=== PATIENT | male | born 1985 | race African-American/Black ===

== ENCOUNTER 2016-07-09 23:24 | Inpatient (IN) | payer OTHER ==
[2016-07-09 23:24] VITALS: O2SAT 98
[2016-07-09] MEDS ORDERED: ceFAZolin 2 GM PREMIX 50 ML ONE (23:29)
[2016-07-09] MEDS ORDERED: LIDOCAINE 1%/EPINEPHrine 1:100,000 SOLN 20 ML VIAL ONE (23:33)
[2016-07-09] MEDS ORDERED: LIDOCAINE 1%/EPINEPHrine 1:100,000 SOLN 30 ML VIAL ONE (23:35)
[2016-07-09] MEDS ORDERED: ceFAZolin 2 GM PREMIX 50 ML IV STA (23:39)
[2016-07-09] MEDS ORDERED: DIPHTH/TETANUS/ACEL PERTUSSIS (BOOSTER) 0.5 ML VIAL/PFS IM ONE (23:39)
[2016-07-10] MEDS ORDERED: SODIUM CHLORIDE 0.9% FLUSH 5 ML FLUSH IVF PRN
[2016-07-10] MEDS ORDERED: NALOXONE HCL 0.4 MG/ML AMP IV PRN
[2016-07-10] MEDS ORDERED: ONDANSETRON HCL 4 MG/2 ML VIAL IV PRN
[2016-07-10] MEDS ORDERED: MORPHINE SULFATE 4 MG/ML INJ IV PRN
[2016-07-10] MEDS ORDERED: Post-op Orders (for Pharmacy) MISC XX ONE
[2016-07-10 00:02] LABS: I-STAT POTASSIUM 4.7 MMOL/L (3.5-4.9)
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
[2016-07-10 00:05] LABS: AUTOMATED NEUTROPHIL # 4.4 TH/MM3 (1.8-7.7); BASOPHIL % 0.3 % (0.0-2.0); HEMATOCRIT 37.4 % (39.0-51.0); HEMO FLAGS DIFF FINAL; LYMPH % 21.7 % (9.0-44.0); LYMPHOCYTE # 1.4 TH/MM3 (1.0-4.8); MEAN CORPUSCULAR HEMOGLOBIN 27.7 PG (27.0-34.0); MONO % 8.8 % (0.0-8.0); NEUT % 69.2 % (16.0-70.0); PLATELET COUNT 156 TH/MM3 (150-450); RED BLOOD COUNT 4.46 MIL/MM3 (4.50-5.90); RED CELL DISTRIBUTION WIDTH 15.2 % (11.6-17.2); WHITE BLOOD COUNT 6.4 TH/MM3 (4.0-11.0)
[2016-07-10 00:14] LABS: APTT (PATIENT) 33.5 SEC (24.3-30.1); INTERNATIONAL NORMALIZED RATIO 1.1 RATIO; PROTHROMBIN TIME - PATIENT 12.4 SEC (9.8-11.6)
[2016-07-10] MEDS ORDERED: LIDOCAINE 1%/EPINEPHrine 1:100,000 SOLN 20 ML VIAL ONE (00:26)
[2016-07-10] MEDS ORDERED: LACTATED RINGER'S 1000 ML INJ 1,000 ML IV SCH (01:20)
[2016-07-10] MEDS ORDERED: DO NOT ADM ANY ANTICOAGULANT DRUGS XX PRN (01:40)
[2016-07-10] MEDS ORDERED: MIDAZOLAM HCL 2 MG/2 ML VIAL ONE (01:49)
[2016-07-10] MEDS ORDERED: fentaNYL CITRATE 250 MCG/5 ML AMP ONE (01:50)
[2016-07-10] MEDS ORDERED: HYDROmorphone HCL PF 1 MG/ML VIAL IV PRN (02:00)
[2016-07-10] MEDS ORDERED: oxyCODONE/ACETAMINOPHEN 7.5 MG/325 MG TAB PO PRN (02:00)
[2016-07-10 03:06] VITALS: BP 116/74; PULSE 86; RESP 21; TEMP 97.8; O2SAT 100
[2016-07-10] MEDS ORDERED: CLINDAMYCIN INJ 600 MG in SODIUM CHLORIDE 0.9% INJ 50 ML IV SCH (04:00)
[2016-07-10] MEDS: ceFAZolin 2 GM PREMIX 50 ML IV SCH ×2 (04:29→12:11)
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
[2016-07-10 08:00] VITALS: BP 131/82; PULSE 102; RESP 18; TEMP 97.5; O2SAT 99
[2016-07-10] MEDS ORDERED: SODIUM CHLORIDE 0.9% FLUSH 5 ML FLUSH IVF SCH (09:00)
[2016-07-10] MEDS ORDERED: PANTOPRAZOLE SODIUM 40 MG VIAL IV SCH (09:00)
[2016-07-10 09:45] VITALS: O2SAT 96
[2016-07-10 10:07] LABS: BICARBONATE 27.5 MEQ/L (21.0-32.0); POTASSIUM 3.8 MEQ/L (3.5-5.1)
[2016-07-10 10:08] LABS: AUTOMATED NEUTROPHIL # 3.1 TH/MM3 (1.8-7.7); BASOPHIL % 0.2 % (0.0-2.0); EOSINOPHIL % 0.1 % (0.0-4.0); HEMATOCRIT 32.1 % (39.0-51.0); HEMO FLAGS DIFF FINAL; LYMPH % 25.9 % (9.0-44.0); LYMPHOCYTE # 1.2 TH/MM3 (1.0-4.8); MEAN CELL VOLUME 83.3 FL (80.0-100.0); MEAN CORPUSCULAR HGB CONC 33.6 % (32.0-36.0); MONO % 6.5 % (0.0-8.0); NEUT % 67.3 % (16.0-70.0); PLATELET COUNT 133 TH/MM3 (150-450); RED BLOOD COUNT 3.85 MIL/MM3 (4.50-5.90); RED CELL DISTRIBUTION WIDTH 15.2 % (11.6-17.2); WHITE BLOOD COUNT 4.5 TH/MM3 (4.0-11.0)
[2016-07-10 12:00] VITALS: BP 135/76; PULSE 103; RESP 16; TEMP 96.6; O2SAT 100
[2016-07-10] MEDS ORDERED: PROPOFOL 200 MG/20 ML AMP IV ONE (12:00)
[2016-07-10] MEDS ORDERED: ONDANSETRON HCL 4 MG/2 ML VIAL IV PUSH ONE (12:00)
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
[2016-07-10] MEDS ORDERED: CEPH-460 PO (15:39)
[2016-07-10] MEDS ORDERED: PERC5TAB12 PO (15:39)
[2016-07-11] MEDS ORDERED: SODIUM CHLOR 0.9% 1000 ML INJ 1,000 ML IV SCH (02:00)
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
--- NOTE | 2016-07-21 20:19 | PD ---
Physical Exam Date Seen by Provider: Jul 10, 2016 Time Seen by Provider: 20:16 Narrative The patient has multiple facial lacerations. He has bleeding coming from the large left cheek and mouth laceration. Data Data Orders Type And Screen (07/09/16 23:29) Cefazolin 2 Gm Premix (Ancef 2 Gm Premix (07/09/16 23:29) I-Stat Profile (07/09/16 23:25) I-Stat Creatinine (07/09/16 23:25) Complete Blood Count With Diff (07/09/16 23:25) Prothrombin Time / Inr (Pt) (07/09/16 23:25) Act Partial Throm Time (Ptt) (07/09/16 23:25) Chest, Single Ap (07/09/16 23:25) Ct Brain W/O Iv Contrast(Rout) (07/09/16 23:25) Ct Facial Bones W/O Iv Cont (07/09/16 23:25) Iv Access Insert/Monitor (07/09/16 23:25) Ecg Monitoring (07/09/16 23:25) Oximetry (07/09/16 23:25) Oxygen Administration (07/09/16 23:25) Lidocai-Epi 1%-1:100,000 Inj (Xylocaine- (07/09/16 23:33) Lidocai-Epi 1%-1:100,000 Inj (Xylocaine- (07/09/16 23:35) Cefazolin 2 Gm Premix (Ancef 2 Gm Premix (07/09/16 23:39) Cbxj-Gnq-Shljsw (Booster) Inj (Boostrix (07/09/16 23:39) Admit To Inpatient (07/09/16 ) Code Status (07/09/16 23:53) Vital Signs (Adult) Q4H (07/09/16 23:53) Activity Bed Rest (07/09/16 23:53) Intake + Output MITA.QSHIFT (07/09/16 23:53) Truck Dispatcher / Telemetry (07/09/16 23:53) Sodium Chloride 0.9% Flush (Ns Flush) (07/10/16 00:00) Sodium Chloride 0.9% Flush (Ns Flush) (07/10/16 09:00) Ondansetron Inj (Zofran Inj) (07/10/16 00:00) Pantoprazole Inj (Protonix Inj) (07/10/16 09:00) Resp Incentive Spirometry (07/09/16 ) Clindamycin Inj (Cleocin Inj) (07/10/16 04:00) Post-Op Orders (For Pharmacy) (Post-Op O (07/10/16 00:00) Morphine Inj (Morphine Inj) (07/10/16 00:00) Naloxone Inj (Narcan Inj) (07/10/16 00:00) Vte Prophylaxis Not Indicated (07/09/16 23:53) Inpatient Certification (07/09/16 ) Consult Plastic Surgery (07/09/16 ) Lidocai-Epi 1%-1:100,000 Inj (Xylocaine- (07/10/16 00:26) Sodium Chlor 0.9% 1000 Ml Inj (Ns 1000 M (07/11/16 02:00) MDM Medical Record Reviewed: Yes Supervised Visit with AAYUSH: Yes Differential Diagnosis MDM: High Differential diagnoses: Fracture, sprain, strain, dislocation, contusion, neurovascular injury Narrative Course . Procedures Procedure Narrative LACERATION LOCATION: Left cheek and mouth LENGTH: 7-8 cm NUMBER OF STITCHES/EZIO: 2 REPAIR: The area of the laceration was prepped with Betadine and sterilely draped. The laceration was infiltrated with 1% lidocaine with epinephrine. The wound was copiously irrigated and explored without evidence of foreign body , tendon injury. Positive arterial bleeding. The bleeder was ligated using 5- 0 Vicryl. The wound was left open.. A sterile dressing was applied. Patient tolerated the procedure well. The patient will need to go to the operating room for morbid definitive repair. This was only a temporizing procedure to obtain hemostasis. Diagnosis Primary Impression: Laceration of face, multiple sites Patient Instructions: Cephalexin (By mouth), Oxycodone/Acetaminophen (By mouth) , Steristrips (ED), Facial Laceration (ED) Vito Banks Jul 21, 2016 20:19
== END 2016-07-10 18:23 | disposition home or self-care (01) | DRG 581 ==
LOC: NEPI 23:24 → EDBD 07-10 01:20 → N07B 07-10 01:20 → MERGE 07-10 01:20
PROVIDERS: ADMIT Surgery; ATTEND Surgery
PROC: 30233N1 Transfusion of Nonautologous Red Blood Cells into Peripheral Vein, Percutaneous Approach (ICD-10-PCS; 2016-07-09)
PROC: 0CQ0XZZ Repair Upper Lip, External Approach (ICD-10-PCS; 2016-07-10)
PROC: 0HQ1XZZ Repair Face Skin, External Approach (ICD-10-PCS; 2016-07-10)
PROC: 0KQ10ZZ Repair Facial Muscle, Open Approach (ICD-10-PCS; principal; 2016-07-10 00:19)
DX: S01.81XA Laceration without foreign body of other part of head, initial encounter (principal); S02.2XXA Fracture of nasal bones, initial encounter for closed fracture; S01.419A Laceration without foreign body of unspecified cheek and temporomandibular area, initial encounter; S01.511A Laceration without foreign body of lip, initial encounter; Z98.2 Presence of cerebrospinal fluid drainage device; X99.1XXA Assault by knife, initial encounter; Y93.89 Activity, other specified; Y92.488 Other paved roadways as the place of occurrence of the external cause; R40.2413 Glasgow coma scale score 13-15, at hospital admission; Z23 Encounter for immunization; Z72.0 Tobacco use
CPT/HCPCS: 36430; 70450; 70486; 71010; 80048; 82435; 82565; 82947; 84132; 84295; 84520; 85025; 85610; 85730; 86850; 86900; 86901; 86920; 90471; 94150; 96365; 99291; C9113; G0390; J0690; J1170; J2250; J2405; J3010; J7120; P9016

== ENCOUNTER 2018-02-20 19:24 | Observation (INO) ==
--- NOTE | 2018-02-20 20:20 | XR ---
EXAM DATE: 02/20/2018 8:17 PM EDT AGE/SEX: 32 years / Male INDICATIONS: . Shortness of breath. CLINICAL DATA: This is the patient's initial encounter. Patient reports that signs and symptoms have been present for 1 day and indicates a pain score of Nonresponsive. MEDICAL/SURGICAL HISTORY: Seizures. . evp of products & co founder shunt [place] [facility] [place] . FINDINGS: PA and lateral views of the chest demonstrate the lungs to be symmetrically aerated without evidence of mass, infiltrate or effusion. The cardiomediastinal contours are unremarkable. Osseous structures are intact. A ventricular peritoneal shunt catheter is again noted projected over the right hemithora x. CONCLUSION: No acute cardiopulmonary disease. Electronically signed by: Jorge Dela Cruz MD 02/20/2018 8:18 PM EDT
[2018-02-20] MEDS ORDERED: Naloxone Inj 0.4 MG/ML Vial IV.PUSH ONE (20:25)
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
[2018-02-20 20:44] LABS: Baso % (Auto) 0.2 % (0.0-2.0); Eos # (Auto) 0.1 th/mm3 (0.0-0.4); Eos % (Auto) 0.8 % (0.0-4.0); Hematocrit 40.1 % (39.0-51.0); Hemoglobin 12.8 gm/dL (13.0-17.0); Lymph # (Auto) 1.4 th/mm3 (1.0-4.8); Lymph % (Auto) 13.4 % (9.0-44.0); Mean Corpuscular Hemoglobin 28.2 pg (27.0-34.0); Mean Corpuscular Volume 88.3 fL (80.0-100.0); Mean Platelet Volume 10.5 fL (7.0-11.0); Mono # (Auto) 0.4 th/mm3 (0.0-0.9); Mono % (Auto) 3.9 % (0.0-8.0); Neut # (Auto) 8.3 th/mm3 (1.8-7.7); Neut % (Auto) 81.7 % (16.0-70.0); Platelet Count 183 th/mm3 (150-450); Red Blood Count 4.54 mil/mm3 (4.50-5.90); Red Cell Distribution Width 16.4 % (11.6-17.2); White Blood Count 10.1 th/mm3 (4.0-11.0)
[2018-02-20 20:51] LABS: INR 1.1 Ratio; Prothrombin Time 11.4 sec (9.8-11.6)
[2018-02-20 21:06] LABS: Anion Gap 11 meq/L (5-15)
[2018-02-20 21:09] LABS: Albumin 3.7 g/dL (3.4-5.0); Aspartate Aminotransferase 65 U/L (15-37); Blood Urea Nitrogen 10 mg/dL (7-18); Carbon Dioxide 29.5 meq/L (21.0-32.0); Chloride 102 meq/L (98-107); Glomerular Filtration Rate 72 mL/min (>89); Glucose,Random 182 mg/dL (74-106); Sodium 142 meq/L (136-145)
--- NOTE | 2018-02-20 21:12 | XR ---
EXAM DATE: 02/20/2018 9:07 PM EDT AGE/SEX: 32 years / Male INDICATIONS: Left forearm pain. CLINICAL DATA: This is the patient's initial encounter. Patient reports that signs and symptoms have been present for 1 day and indicates a pain score of Nonresponsive. MEDICAL/SURGICAL HISTORY: Non-responsive. Non-responsive. COMPARISON: [facility], ELBOW LEFT COMPLETE (4 VWS), 10/11/2015. . FINDINGS: Bony structures are intact and in normal alignment. Osseous density is normal. There is diffuse soft tissue prominence over the forearm with no radiopaque foreign body. CONCLUSION: Soft tissue prominence with no radiopaque foreign body. Electronically signed by: Jorge Dela Cruz MD 02/20/2018 9:11 PM EDT
[2018-02-20 21:16] LABS: Alanine Aminotransferase 68 U/L (12-78); Alkaline Phosphatase 79 U/L (45-117); Potassium 2.8 meq/L (3.5-5.1); Total Protein 8.1 g/dL (6.4-8.2)
[2018-02-20] MEDS ORDERED: Sod Chloride 0.9% Inj 1,000 ML IV.SIG SCH (21:30)
--- NOTE | 2018-02-20 21:37 | CT ---
EXAM DATE: 02/20/2018 9:26 PM EDT AGE/SEX: 32 years / Male INDICATIONS: Altered mental status. CLINICAL DATA: This is the patient's initial encounter. Patient reports that signs and symptoms have been present for 1 day and indicates a pain score of Nonresponsive. MEDICAL/SURGICAL HISTORY: Hypertension. Craniotomy. Shunt. RADIATION DOSE: 56.35 CTDI (mGy) COMPARISON: [facility] [place], CT BRAIN W/O CONTRAST, 11/15/2015. . TECHNIQUE: CT of the head without contrast. Using automated exposure control and adjustment of the mA and/or kV according to patient size, radiation dose was kept as low as reasonably achievable to ob tain optimal diagnostic quality images. DICOM format image data is available electronically for revi ew and comparison. FINDINGS: Cerebrum: The ventricles are normal for age. There is a stable small area of encephalomalacia involv ing the lateral left frontal lobe small area of calcification. The patient status post adjacent crani otomy. No evidence of midline shift, mass lesion, hemorrhage or acute infarction. No extraaxial flui d collections are seen. A ventricular shunt catheter is again noted in place via a right frontal appr oach with the tip near midline in stable in appearance. Posterior Fossa: The cerebellum and brainstem are intact. The 4th ventricle is midline. The cerebe llopontine angle is unremarkable. Extracranial: The visualized portion of the orbits is intact. Skull: Remote postsurgical changes are consistent status post left craniotomy. No evidence of skull fracture. CONCLUSION: 1. No acute hemorrhage, mass or acute infarction. 2. Status post remote left craniotomy stable area of encephalomalacia in the left frontal lobe. 3. The ventriculoperitoneal shunt catheter remains in place with no evidence of hydrocephalus. . Electronically signed by: Jorge Dela Cruz MD 02/20/2018 9:36 PM EDT
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
[2018-02-20] MEDS: Potassium Chlor 10 mEq Premix 10 MEQ/100 ML PIGGYBACK IV.SIG SCH ×2 (22:50→23:57)
[2018-02-20] MEDS ORDERED: Bisacodyl 10 MG Supp RECTAL PRN (23:12)
[2018-02-20] MEDS ORDERED: Acetaminophen 325 MG Tablet PO PRN (23:12)
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
[2018-02-21 00:04] LABS: Amorphous Sediment,Urine Rare /hpf; Bacteria,Urine Rare /hpf; Bilirubin,Urine Negative (Negative); Clarity,Urine Hazy (Clear); Color,Urine Yellow (Yellw/Straw); Glucose,Urine (UA) 50 mg/dL (Negative); Leukocyte Esterase,Urine Negative (Negative); Mucus,Urine Few /lpf (Occasional); Nitrite,Urine Negative (Negative); Specific Gravity,Urine 1.016 (1.002-1.035); Squamous Epithelial Cell,Urine <1 /hpf (0-5); Urobilinogen,Urine 4 or Greater mg/dL (Less than 2)
[2018-02-21 00:09] LABS: Amphetamine Screen,Urine Neg (Neg); Barbiturate Screen,Urine Neg (Neg); Cannabinoid Screen,Urine Neg (Neg); Cocaine Screen,Urine Pos (Neg)
[2018-02-21 00:17] LABS: Opiate Screen,Urine Neg (Neg)
[2018-02-21] MEDS: Potassium Chlor 10 mEq Premix 10 MEQ/100 ML PIGGYBACK IV.SIG SCH ×4 (01:00→05:13)
[2018-02-21] MEDS ORDERED: Senna/Docusate Sodium 8.6/50 MG Tablet PO SCH (09:00)
[2018-02-21 11:38] LABS: Anion Gap 8 meq/L (5-15); Blood Urea Nitrogen 7 mg/dL (7-18); Calcium 7.7 mg/dL (8.5-10.1); Carbon Dioxide 28.4 meq/L (21.0-32.0); Chloride 114 meq/L (98-107); Glomerular Filtration Rate Greater Than 89 mL/min (>89); Glucose,Random 92 mg/dL (74-106); Potassium 3.4 meq/L (3.5-5.1); Sodium 150 meq/L (136-145)
[2018-02-21 12:21] VITALS: RESP 18; O2SAT 99
[2018-02-21] MEDS ORDERED: Potassium Chloride Inj 10 MEQ in Sodium Chloride 0.45 % Inj 1,000 ML IV.CONT SCH (14:00)
--- NOTE | 2018-02-21 14:43 | P.PNIM ---
Subjective Interval history: Nursing denies any deterioration since last night. Patient himself wanting to go home is asking to go home so he can see his daughter. Has given me permission to talk to his brother Ramesh about his health. Physical Exam Vital signs: Vital Signs 02/20/18 19:36 02/20/18 20:30 02/21/18 00:00 Temperature 99.1 F 97.9 F Pulse Rate 97 H 85 Respiratory Rate 18 16 Blood Pressure 134/70 151/82 H Pulse Oximetry 98 98 100 02/21/18 04:00 02/21/18 07:21 02/21/18 08:25 Temperature 98.1 F Pulse Rate 83 75 Respiratory Rate 16 16 Blood Pressure 149/78 H 134/84 Pulse Oximetry 100 99 100 02/21/18 08:44 02/21/18 12:00 Temperature 98.8 F 99.0 F Pulse Rate 93 H Respiratory Rate 18 Blood Pressure 111/63 Pulse Oximetry 99 Intake & Output 02/20/18 02/21/18 02/21/18 18:59 06:59 18:59 Intake Total 1600 / 1600 Balance 1600 / 1600 Weight 100.055 kg Intake: IV 1600 / 1600 KCl 10 mEq Premix Inj 10 meq In 600 / 600 100 ml @ 100 mls/hr IV.SIG Q1H RENATO Rx#:[id number] NS Inj 1,000 ML @ Wide Open IV. 1000 / 1000 SIG BOLUS RENATO Rx#:[id number] Other: Other Intake Source Saline Solution Narrative: Has slightly garbled speech likely secondary to his chronic traumatic brain injury. But no facial droop Alert and oriented 3, actually has intact insight Clear lungs bilaterally, unlabored breathing Ambulating without any difficulty Results - Labs CBC & Chem 7: 02/20/18 20:30 02/21/18 15:46 Laboratory Results - last 24 hr 02/20/18 02/20/18 02/20/18 20:30 20:30 20:30 WBC 10.1 RBC 4.54 Hgb 12.8 L Hct 40.1 MCV 88.3 MCH 28.2 MCHC 32.0 RDW 16.4 Plt Count 183 MPV 10.5 Neut % (Auto) 81.7 H Lymph % (Auto) 13.4 [place] % (Auto) 3.9 Eos % (Auto) 0.8 Baso % (Auto) 0.2 Neut # (Auto) 8.3 H Lymph # (Auto) 1.4 [place] # (Auto) 0.4 Eos # (Auto) 0.1 Baso # (Auto) 0.0 WBC Differential . Differential Comment Auto diff final PT 11.4 INR 1.1 Sodium 142 Potassium 2.8 L* Chloride 102 Carbon Dioxide 29.5 Anion Gap 11 BUN 10 Creatinine 1.38 H Estimated GFR 72 L Random Glucose 182 H Lactic Acid Calcium 9.0 Magnesium Total Bilirubin 0.3 AST 65 H ALT 68 Alkaline Phosphatase 79 Ammonia Troponin I Less than 0.02 L Total Protein 8.1 Albumin 3.7 Urine Color Urine Clarity Urine pH Ur Specific [place] Urine Protein Urine Glucose (UA) Urine Ketones Urine Occult Blood Urine Nitrate Urine Bilirubin Urine Urobilinogen Ur Leukocyte Esterase Urine RBC Urine WBC Ur Squamous Epith Cells Amorphous Sediment Urine Bacteria Urine Mucus Micro UA Comment Ur Microscopic Review Urine Culture Comments Salicylates Urine Opiates Screen Ur Barbiturates Screen Ur Amphetamines Screen U Benzodiazepines Scrn Urine Cocaine Screen U Cannabinoids Screen Serum Alcohol Less than 3 02/20/18 02/20/18 02/20/18 20:30 20:30 20:35 WBC RBC Hgb Hct MCV MCH MCHC RDW Plt Count MPV Neut % (Auto) Lymph % (Auto) [place] % (Auto) Eos % (Auto) Baso % (Auto) Neut # (Auto) Lymph # (Auto) [place] # (Auto) Eos # (Auto) Baso # (Auto) WBC Differential Differential Comment PT INR Sodium Potassium Chloride Carbon Dioxide Anion Gap BUN Creatinine Estimated GFR Random Glucose Lactic Acid 2.2 H Calcium Magnesium Total Bilirubin AST ALT Alkaline Phosphatase Ammonia 19 Troponin I Total Protein Albumin Urine Color Urine Clarity Urine pH Ur Specific [place] Urine Protein Urine Glucose (UA) Urine Ketones Urine Occult Blood Urine Nitrate Urine Bilirubin Urine Urobilinogen Ur Leukocyte Esterase Urine RBC Urine WBC Ur Squamous Epith Cells Amorphous Sediment Urine Bacteria Urine Mucus Micro UA Comment Ur Microscopic Review Urine Culture Comments Salicylates 2.9 Urine Opiates Screen Ur Barbiturates Screen Ur Amphetamines Screen U Benzodiazepines Scrn Urine Cocaine Screen U Cannabinoids Screen Serum Alcohol 02/20/18 02/20/18 02/21/18 23:44 23:44 09:53 WBC RBC Hgb Hct MCV MCH MCHC RDW Plt Count MPV Neut % (Auto) Lymph % (Auto) [place] % (Auto) Eos % (Auto) Baso % (Auto) Neut # (Auto) Lymph # (Auto) [place] # (Auto) Eos # (Auto) Baso # (Auto) WBC Differential Differential Comment PT INR Sodium 150 H Potassium 3.4 L Chloride 114 H D Carbon Dioxide 28.4 Anion Gap 8 BUN 7 Creatinine 0.76 Estimated GFR Greater than 89 Random Glucose 92 Lactic Acid Calcium 7.7 L D Magnesium Total Bilirubin AST ALT Alkaline Phosphatase Ammonia Troponin I Total Protein Albumin Urine Color Yellow Urine Clarity Hazy H Urine pH 6.0 Ur Specific [place] 1.016 Urine Protein Negative Urine Glucose (UA) 50 Urine Ketones Negative Urine Occult Blood Negative Urine Nitrate Negative Urine Bilirubin Negative Urine Urobilinogen 4 or greater Ur Leukocyte Esterase Negative Urine RBC 1 Urine WBC 1 Ur Squamous Epith Cells <1 Amorphous Sediment Rare H Urine Bacteria Rare H Urine Mucus Few H Micro UA Comment Cath-culture not ind Ur Microscopic Review Not Reportable Urine Culture Comments Cath-cult not ind Salicylates Urine Opiates Screen Neg Ur Barbiturates Screen Neg Ur Amphetamines Screen Neg U Benzodiazepines Scrn Neg Urine Cocaine Screen Pos H U Cannabinoids Screen Neg Serum Alcohol 02/21/18 09:53 WBC RBC Hgb Hct MCV MCH MCHC RDW Plt Count MPV Neut % (Auto) Lymph % (Auto) [place] % (Auto) Eos % (Auto) Baso % (Auto) Neut # (Auto) Lymph # (Auto) [place] # (Auto) Eos # (Auto) Baso # (Auto) WBC Differential Differential Comment PT INR Sodium Potassium Chloride Carbon Dioxide Anion Gap BUN Creatinine Estimated GFR Random Glucose Lactic Acid Calcium Magnesium 2.3 Total Bilirubin AST ALT Alkaline Phosphatase Ammonia Troponin I Total Protein Albumin Urine Color Urine Clarity Urine pH Ur Specific [place] Urine Protein Urine Glucose (UA) Urine Ketones Urine Occult Blood Urine Nitrate Urine Bilirubin Urine Urobilinogen Ur Leukocyte Esterase Urine RBC Urine WBC Ur Squamous Epith Cells Amorphous Sediment Urine Bacteria Urine Mucus Micro UA Comment Ur Microscopic Review Urine Culture Comments Salicylates Urine Opiates Screen Ur Barbiturates Screen Ur Amphetamines Screen U Benzodiazepines Scrn Urine Cocaine Screen U Cannabinoids Screen Serum Alcohol - Imaging Impressions Chest X-Ray 02/20/18 19:58 CONCLUSION: No acute cardiopulmonary disease. Forearm X-Ray 02/20/18 20:36 CONCLUSION: Soft tissue prominence with no radiopaque foreign body. Head CT 02/20/18 20:36 CONCLUSION: 1. No acute hemorrhage, mass or acute infarction. 2. Status post remote left craniotomy stable area of encephalomalacia in the left frontal lobe. 3. The ventriculoperitoneal shunt catheter remains in place with no evidence of hydrocephalus. . Venous Doppler Study 02/20/18 20:36 CONCLUSION: 1. Negative exam with no evidence of deep venous thrombosis. Assessment and Plan - Plan 1. Hypokalemia Resolved Hypernatremia Possibly secondary to IV fluids? Will start half normal saline and recheck BMP today 2. Altered mental status Resolved 3. Shortness of breath Resolved 4. Hypertension Patient does not know his home medications Normotensive at this time Monitor Addendum: Hypernatremia significantly improved, will discharge.
[2018-02-21 16:01] VITALS: BP 120/60; PULSE 83; TEMP 98.5
[2018-02-21 16:47] LABS: Anion Gap 7 meq/L (5-15); Blood Urea Nitrogen 7 mg/dL (7-18); Calcium 7.7 mg/dL (8.5-10.1); Carbon Dioxide 28.2 meq/L (21.0-32.0); Chloride 111 meq/L (98-107); Glomerular Filtration Rate Greater Than 89 mL/min (>89); Glucose,Random 131 mg/dL (74-106); Potassium 3.3 meq/L (3.5-5.1); Sodium 146 meq/L (136-145)
== END 2018-02-21 18:40 | disposition home or self-care (01) ==
LOC: NEDA 19:24 → NEPC 19:24 → NEPGCP 02-21 01:34
PROVIDERS: ADMIT Hospitalist; ATTEND Hospitalist